=== PATIENT | male | born 2000 | race Caucasian/White ===

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

== ENCOUNTER 2018-02-27 18:26 | Emergency (ER) | payer OTHER ==
[2018-02-27 18:58] VITALS: BP 123/68; PULSE 65; TEMP 98; BMI 22.0
--- NOTE | 2018-02-27 19:00 | PDOC ---
Rapid Medical Evaluation Time Seen by Provider: 02/27/18 18:56 Medical Evaluation: Allergies Allergy/AdvReac Type Severity Reaction Status Date / Time No Known Allergies Allergy Verified 02/27/18 18:56 I have performed a brief in-person evaluation of this patient. The patient presents with a chief complaint of: Struck left foot/ 5th toe into wall this am Pertinent physical exam findings: swelling / ecchymosis I have ordered the following: xray 5th toe The patient will proceed to the ED for further evaluation. 02/27/18 19:00
[2018-02-27] MEDS ORDERED: ACETAMINOPHEN 160 MG/5 ML *Children Solution PO ONE (19:54)
--- NOTE | 2018-02-27 19:56 | PDOC ---
History of Present Illness - General Chief Complaint: Injury Stated Complaint: TOE INJURY Time Seen by Provider: 02/27/18 18:56 - History of Present Illness Initial Comments: 17-year-old male without any pre-existing comorbidities presents for evaluation of left fifth toe pain after running into a wall. He points to the dorsal aspect of the left fifth toe as the area of his discomfort his pain is described as achy exacerbated with a bearing and motion relieved with rest and free of radiation. No prior problems with the fifth toe. 02/27/18 19:54 Past History - Past Medical History Allergies/Adverse Reactions: Allergies Allergy/AdvReac Type Severity Reaction Status Date / Time No Known Allergies Allergy Verified 02/27/18 18:56 Home Medications: Ambulatory Orders NK [No Known Home Medication] 08/05/17 COPD: No Psychiatric Problems: No - Immunization History Immunization Up to Date: Yes - Suicide/Smoking/Psychosocial Hx Smoking History: Never smoked Hx Alcohol Use: No Drug/Substance Use Hx: No Substance Use Type: None Review of Systems - Review of Systems Musculoskeletal: Yes: See HPI, Joint Pain All Other Systems: Reviewed and Negative *Physical Exam - Vital Signs Last Vital Signs Temp Pulse Resp BP Pulse Ox 98.0 F 65 18 123/68 100 02/27/18 18:56 02/27/18 18:56 02/27/18 18:56 02/27/18 18:56 02/27/18 18:56 - Physical Exam Comments: Left fifth toe exam: There is mild swelling tenderness about the proximal phalanx. Decreased range of motion no gross sensorimotor deficits. He is neurovascularly intact. 02/27/18 19:55 Medical Decision Making - Medical Decision Making There is unicortical fracture at the base of the fifth proximal phalanx 02/27/18 19:51 02/27/18 19:56 Left fifth toe fracture he may kayode tape weight-bear as tolerated with a hard soled shoe and follow-up with orthopedic surgery. Tylenol and Motrin for pain. *DC/Admit/Observation/Transfer Diagnosis at time of Disposition: Fracture of toe of left foot - Discharge Dispostion Disposition: HOME Condition at time of disposition: Stable Decision to Admit order: No - Referrals Referrals: Simone Qureshi MD [Primary Care Provider] - Adams Marley MD [Staff Physician] - - Patient Instructions Printed Discharge Instructions: Toe Fracture, DI for Toe Fracture Additional Instructions: You have a fractured toe. Kayode tape the toes as I have done few an the emergency room today. It's important few to follow-up with orthopedic surgery for further evaluation and treatment options. Return to the emergency room if symptoms worsen or go unresolved prior to follow-up. He may take Tylenol and Motrin for your pain. As directed. - Post Discharge Activity Forms/Work/School Notes: Parent(s) Back to Work Note
[2018-02-27] MEDS ORDERED: ACETAMINOPHEN 650 MG/20.3 ML ORAL SOLUTION (CUPS) ONE (19:59)
== END 2018-02-27 20:18 | disposition home or self-care (01) ==
LOC: JERFT 18:26
DX: S92.515A Nondisplaced fracture of proximal phalanx of left lesser toe(s), initial encounter for closed fracture (principal); S82.892A Other fracture of left lower leg, initial encounter for closed fracture; W22.01XA Walked into wall, initial encounter; Y93.89 Activity, other specified; Y92.89 Other specified places as the place of occurrence of the external cause; Y99.8 Other external cause status
CPT/HCPCS: 73660-TC-FY; 99281-25

== ENCOUNTER 2018-07-23 09:27 | Emergency (ER) | payer OTHER ==
[2018-07-23 10:10] VITALS: BP 107/58; PULSE 74; TEMP 97.9; BMI 22.8
--- NOTE | 2018-07-23 11:22 | PDOC ---
History of Present Illness - General Chief Complaint: Rash Stated Complaint: ALLERGIC REACTION Time Seen by Provider: 07/23/18 11:13 - History of Present Illness Initial Comments: 07/23/18 11:18 17-year-old male without comorbidities presents for evaluation of a rash around his face and nasal congestion times one day without associated symptoms. Past History - Past Medical History Allergies/Adverse Reactions: Allergies Allergy/AdvReac Type Severity Reaction Status Date / Time No Known Allergies Allergy Verified 07/23/18 10:06 Home Medications: Ambulatory Orders Cetirizine HCl/Pseudoephedrine [Zyrtec-D Tablet] 1 each PO DAILY #30 tab.er.12h 07/23/18 COPD: No Psychiatric Problems: No - Immunization History Immunization Up to Date: Yes - Suicide/Smoking/Psychosocial Hx Smoking History: Never smoked Hx Alcohol Use: No Drug/Substance Use Hx: No Substance Use Type: None Review of Systems - Review of Systems HEENTM: Yes: Nose Congestion Integumentary: Yes: Rash All Other Systems: Reviewed and Negative *Physical Exam - Vital Signs Last Vital Signs Temp Pulse Resp BP Pulse Ox 97.9 F 74 18 107/58 L 99 07/23/18 09:55 07/23/18 09:55 07/23/18 09:55 07/23/18 09:55 07/23/18 09:55 - Physical Exam Comments: 07/23/18 11:19 HEAD: NC/AT EYES: Conjuntiva clear Ears: Canals and TM's normal NOSE: Clear rhinorrhea THROAT: Moist mucous membrances, oral pharanx clear, uvula midline NECK: Supple without adenopathy CARDIAC: S1 S2 LUNGS: CTA Full and Equal breath sounds ABDOMEN: Soft NT ND MS: Full ROM in all joints without edema NEUROLOGIC: No gross sensory or motor deficits, NVID SKIN: Normal color and temperature no rash appreciated Medical Decision Making - Medical Decision Making 07/23/18 11:20 Patient states he took Benadryl at home which help relieve the symptoms. I believe this is an ALLERGIC rash with most likely a seasonal ALLERGY component I will have her follow-up with PCP prescribe him Celine-D *DC/Admit/Observation/Transfer Diagnosis at time of Disposition: Environmental allergies - Discharge Dispostion Disposition: HOME Condition at time of disposition: Stable Decision to Admit order: No - Prescriptions Prescriptions: Cetirizine HCl/Pseudoephedrine [Zyrtec-D Tablet] 1 each PO DAILY #30 tab.er.12h - Referrals Referrals: Shi Saunders MD [Staff Physician] - Benjamin Almaraz MD [Staff Physician] - Shyla Roy MD [Staff Physician] - Ronald Saul MD [Staff Physician] - Julia Delgado MD [Staff Physician] - Yajaira Han MD [Staff Physician] - - Patient Instructions Printed Discharge Instructions: Allergic Rhinitis Additional Instructions: Return to the emergency room should symptoms worsen or go unresolved. Please follow-up with the primary care physician I recommended for you in one to 2 days for further evaluation and treatment options. Do not take any more Benadryl. I prescribed for you and antihistamine which should help with your nasal congestion and rash symptoms. - Post Discharge Activity
== END 2018-07-23 11:24 | disposition home or self-care (01) ==
LOC: JERFT 09:27
DX: J30.89 Other allergic rhinitis (principal)
CPT/HCPCS: 99281-25

== ENCOUNTER → 2019-04-02 | Emergency (ER) | payer SELFPAY, OTHER | LOC: JER 23:00 ==

== ENCOUNTER 2021-04-28 10:45 | Emergency (ER) | payer BC ==
[2021-04-28 10:59] VITALS: BP 102/64; PULSE 71; TEMP 98.1; BMI 23.4
[2021-04-28] MEDS ORDERED: ACETAMINOPHEN 160 MG/5 ML *Children Solution PO ONE (13:46)
== END 2021-04-28 16:07 | disposition home or self-care (01) ==
LOC: JER 10:45
DX: S09.90XA Unspecified injury of head, initial encounter (principal); W22.8XXA Striking against or struck by other objects, initial encounter; V00.131A Fall from skateboard, initial encounter; Y93.51 Activity, roller skating (inline) and skateboarding
CPT/HCPCS: 70450-TC; 71046-TC-FY; 72070-TC-FY; 99285-25